=== PATIENT | female | born 1945 | race Two or more races ===

== ENCOUNTER → 2024-07-23 | Outpatient (CLI) | payer MEDICARE, MEDICAID, SELFPAY ==
--- NOTE | 2024-07-23 10:23 | XR_ITS ---
Examination: Bilateral hips, AP pelvis, 5 views Technique: AP, lateral views both hips, AP pelvis, 5 views Exam date and time: July 23, 2024 1030 hrs. Indications: Bilateral hip pain years Findings: Severe osteopenia Moderate narrowing hip joints No right or left hip fracture or dislocation Impression: Moderate narrowing hip joints
== END | disposition home or self-care (01) ==
PROVIDERS: PCP Family Medicine; Referring Provider Nurse Practitioner Family; Visit Provider Nurse Practitioner Family
DX: M25.852 Other specified joint disorders, left hip (principal); M25.851 Other specified joint disorders, right hip
CPT/HCPCS: 73523

== ENCOUNTER 2024-09-03 22:32 | Emergency (ER) | payer MEDICARE, MEDICAID, SELFPAY ==
[2024-09-03 22:35] VITALS: BP 109/59; PULSE 74; PULSE 83; RESP 16; RESP 18; O2SAT 95; O2SAT 96; BMI 28.3
[2024-09-03 23:57] VITALS: BP 111/62; PULSE 80; RESP 18; TEMP 37.2; O2SAT 95
--- NOTE | 2024-09-04 00:17 | XR_ITS ---
Examination: PA chest single view TECHNIQUE: Upright PA chest single view EXAMINATION: September 04, 2024 1225 hours INDICATIONS: Coughing beginning 2 weeks ago. FINDINGS: Mild prominence left ventricle Prominent vascular congestion Interstitial disease throughout the lungs consistent with pulmonary edema Prominent osteopenia IMPRESSION: Findings most consistent with CHF, superimposed pneumonia in both lungs not excluded, clinical correlation is advised
[2024-09-04] MEDS: ALBUTEROL/IPRATROPIUM (Duoneb) RT SOL 3 ML NEBU INH (00:43)
[2024-09-04 00:46] VITALS: PULSE 73; RESP 18; O2SAT 99
[2024-09-04 01:18] LABS: Lactate (Lactic Acid) 0.8 mMol/L (0.4-2.0)
[2024-09-04 01:19] LABS: Basophils % (Auto) 1 % (0-2.5); Eosinophils % (Auto) 0 % (0-10); Hematocrit 32.5 % (36.0-46.0); Hemoglobin 10.9 g/dL (12.0-16.0); Immature Granulocytes % (Auto) 1 % (0-0); Immature Granulocytes Auto 0.06 Thou/mm3 (0.00-0.00); Lymphocytes # (Auto) 1.9 Thou/mm3 (1.0-4.8); Lymphocytes % (Auto) 24 % (10-50); Mean Corpuscular HGB Conc 33.5 g/dl (31.0-37.0); Mean Corpuscular Hemoglobin 32.5 pg (25.0-35.0); Mean Corpuscular Volume 97 fL (80-100); Monocytes # (Auto) 0.8 Thou/mm3 (0.0-0.8); Monocytes % (Auto) 11 % (0-12); Neutrophils # (Auto) 5.1 Thou/mm3 (1.8-7.7); Neutrophils % (Auto) 64 % (37-80); Nucleated Red Blood Cell % 0 /100 WBC (0); Platelet Count 205 Thou/mm3 (140-440); RDW Standard Deviation 58.4 fL (36.4-46.3); Red Blood Count 3.35 Miln/mm3 (4.00-5.20); White Blood Count 7.9 Thou/mm3 (3.6-11.0)
--- NOTE | 2024-09-04 01:43 | PRELIM_ITS ---
Radiograph of the chest (single view). September 04, 2024 0025 hours Clinical history: Cough Comparison: No prior study is available for comparison. Findings: The aorta is ectatic with atheromatous calcification of the aortic arch. The heart size is within normal limits. Prominent interstitial lung markings are seen. There is no pleural effusion. The bony thorax is unremarkable. Impression: Findings suggestive of interstitial pulmonary edema Report Electronically Signed By: Carlos Waggoner 09/04/2024 1:43:29 AM [EST]
[2024-09-04 01:45] LABS: Alanine Aminotransferase 13 U/L (10-49); Albumin, Serum 3.8 gm/dL (3.4-4.8); Albumin/Globulin Ratio 1.3 (1.2-2.2); Alkaline Phosphatase 74 U/L (46-116); Anion Gap 8 (7-16); Aspartate Amino Transferase 23 U/L (0-34); BUN/Creatinine Ratio 19 Ratio (12-20); Blood Urea Nitrogen 13 mg/dL (9-23); Calcium 8.1 mg/dL (8.3-10.6); Calcium (Corrected) 8.3 mg/dL (8.5-10.1); Carbon Dioxide 26.2 mMol/L (20.0-31.0); Chloride 104 mMol/L (98-107); Creatinine (Component) 0.7 mg/dL (0.6-1.3); Estimated Creatinine Clearance 56.6 mL/min (>60); Glucose 97 mg/dL (74-106); Osmolality,Calculated 275 (275-295); Potassium 3.6 mMol/L (3.4-5.1); Procalcitonin 0.22 ng/ml (0.0-0.49); Sodium 138 mMol/L (136-145); Total Protein 6.8 gm/dL (5.7-8.2); eGFR > 60 See Note
--- NOTE | 2024-09-04 01:47 | EKG_ITS ---
[facility] Test Date: 2024-09-04 Pat Name: JUSTO VAZ Department: Room: - Gender: Female Digital Printer Operator: : [id number] Requested By: Virgil Morales Order Number: [id number] Reading MD: Virgil Morales Measurements Intervals [place] Rate: 80 P: 94 [place]: 126 QRS: -8 QRSD: 101 T: -1 QT: 379 QTc: 439 Interpretive Statements SINUS RHYTHM WITH SINUS ARRHYTHMIA NONSPECIFIC T-WAVE ABNORMALITY Compared to ECG 04/05/2022 13:51:13 T-wave abnormality now present /store/S0/[id number].pdf
[2024-09-04 02:16] LABS: Troponin I < 0.020 ng/mL (0.0-0.045)
[2024-09-04 02:32] LABS: D-Dimer < 250 ng/mL (<600)
[2024-09-04 02:43] LABS: B-Type Natriuretic Peptide 121 pg/mL (0-100)
--- NOTE | 2024-09-04 02:51 | XR_ITS ---
Examination: CT chest, without intravenous contrast. Sagittal and coronal 2-D reconstructions. Exam date and time: September 04, 2024 0544 hours INDICATIONS: Coughing chest pain beginning 2 days ago CTDI:vol (mGy) 14 DLP: (mGycm) 418 Technique: Multiple 3.0 mm axial sections of the chest to been obtained. Bone and lung density settings are obtained. Sagittal and coronal 2-D reconstructions have been obtained. Low dose protocols were performed. One or more of the following dose reduction techniques were used; automated exposure control, adjustment of the mA and/or KV according to patient size, use of iterative reconstruction technique. Findings: No thoracic aortic aneurysmal dilatation No significant enlargement pulmonary artery segments No paratracheal tracheobronchial or bronchopulmonary adenopathy. Mild enlargement cardiac contour. Mitral valvular calcification. Prominent vascular congestion with septal pulmonary edema in the lung maurer The liver is mildly irregular in contour Absent gallbladder No pancreatic mass Spleen is not enlarged No hydronephrosis IMPRESSION: Mild CHF, superimposed bilateral pneumonia not excluded, clinical correlation advised Suspect primary hepatocellular disease
--- NOTE | 2024-09-04 05:47 | EDRME_ITS ---
Rapid Medical Screening Exam [facility] Arrival date/time: 09/03/24 22:32 79F with history of PE, HTN, and RA (on biologic) presents to ED with several days of cough, SOB, and JAIN when coughing. Patient felt better after albuterol. CXR showed possible pulmonary edema. CT pending. Chief Complaint: Headache Time Seen by Provider: 09/04/24 00:17 Vital signs: Vital Signs Pulse Rate 83 09/03/24 22:35 Respiratory Rate 18 09/03/24 22:35 Blood Pressure 109/59 L 09/03/24 22:35 Pulse Oximetry (%) 95 09/03/24 22:35 Oxygen Delivery Method Room Air 09/03/24 22:35
--- NOTE | 2024-09-04 06:32 | PRELIM_ITS ---
CT scan of the chest without intravenous contrast (axial sections with sagittal and coronal reformats) September 04, 2024 at 0544 hours Clinical History: Possible edema on CXR. Comparison: No prior study is available for comparison. Findings: Moderate mediastinal lymphadenopathy. Moderate cardiomegaly. Coronary atherosclerosis. No pericardial effusion, pleural effusion or pneumothorax. Patchy bilateral pulmonary infiltrates. Subpleural pulmonary fibrosis and emphysema. Status post cholecystectomy. The chest wall is unremarkable. No acute osseous process. Impression: Bilateral pulmonary infiltrates suspicious for pneumonia. Report Electronically Signed By: Carlitos Branch 09/04/2024 6:32:25 AM [EST]
--- NOTE | 2024-09-04 07:56 | EDNOTE_ITS ---
<Statement entered by Ruth Townsend MD - 09/05/24 17:25> As co-signing physician, I was present and available for consult prn. I concur with the plan and care as documented by the midlevel provider. ED Headache RME/HPI General Chief Complaint: Headache Stated Complaint: HEADACHE Time Seen by Provider: 09/04/24 00:17 Arrival date/time: 09/03/24 22:32 This is an 79-year-old female that is brought in by [id number] with complaints of cough for the last few days. Patient also complains of feeling weak. Patient has a history of pulmonary embolism after having COVID per patient. Patient also has a history of high blood pressure RA. RME / HPI RME / HPI Narrative: 09/03/24 22:32 79F with history of PE, HTN, and RA (on biologic) presents to ED with several days of cough, SOB, and JAIN when coughing. Patient felt better after albuterol. CXR showed possible pulmonary edema. CT pending. Related Data Home Medications ?Medication ?Instructions ?Recorded ?Confirmed amlodipine 5 mg tablet (Norvasc) 5 mg PO QDAY #0 tabs 05/29/15 04/13/20 Previous Rx's ?Medication ?Instructions ?Recorded apixaban 5 mg (74 tabs) tablets in See Rx Instructions .Route 04/14/20 a dose pack (Eliquis DVT-PE Treat .COMPLEX #74 tabs 30D Start) azithromycin 250 mg tablet See Rx Instructions PO .COM PLEX #6 04/23/20 (Zithromax Z-Marcos) tabs prednisone 10 mg tablet 10 mg PO BID #6 tabs 2 albuterol sulfate 90 mcg/actuation 2 puff inhalation Q ID PRN 09/04/24 aerosol inhaler shortness of breath or wheez ing #8.5 grams azithromycin 250 mg tablet See Rx Instructions PO .COM PLEX #6 09/04/24 tabs Allergies Allergy/AdvReac Type Severity Reaction Status Date / Time No Known Allergies Allergy Unverified 09/04/24 08:11 Review of Systems Review of Systems Systems Reviewed: All systems reviewed, normal except as documented Past Medical History Past Medical History CARDIAC: Positive Myocardial Infarction and Hypertension GASTROINTESTINAL: Positive Gastrointestinal Disorders, Obstructive Bowel and Gastroesophageal Reflux Disease MUSCULOSKELETAL: Positive Musculoskeletal Disorders and Arthritis PSYCHO/SOCIAL: Positive Depression OTHER HISTORY: Positive Chicken Pox Family History FAMILY HISTORY: Negative Family Cardiac Disorders Surgical History SURGICAL: Positive Abdominal Surgery and Hysterectomy Social History SMOKING STATUS: Never smoker SUBSTANCE USE: does not use ED Exam General General appearance: Present alert and in no apparent distress Head Head exam: Present atraumatic Eye Eye exam: Present normal appearance, PERRL and EOMI ENT ENT exam: Present normal exam, normal oropharynx and mucous membranes moist Neck Neck exam: Present normal inspection, full ROM and trachea midline Chest Chest inspection: Present normal inspection and symmetric chest wall rise Respiratory Respiratory exam: Present normal lung sounds bilaterally Cardiovascular Cardiovascular exam: Present regular rate, normal rhythm and normal heart sounds Abdominal Exam Abdominal exam: Present soft Extremities Exam Extremities exam: Present normal inspection and full ROM Back Exam Back exam: Present normal inspection and full ROM Neurological Exam Neurological exam: Present alert, oriented X3 and CN II-XII intact Psychiatric Psychiatric exam: Present normal affect and normal mood Skin Skin exam: Present warm, dry and intact Course Quality Measures none Orders Category Date Time Status Bedside COVID-19 Antigen Test NOW Care 09/04/24 00:17 Completed Bedside Influenza A&B Antigen Test NOW Care 09/04/24 00:17 Completed EKG (ED ONLY) *Do not use* NOW Care 09/04/24 01:[address] chest wo con Stat Exams 09/04/24 02:51 Completed EKG (ED Only) Stat Exams 09/04/24 01:47 Draft XR chest 1V portable Stat Exams 09/04/24 00:17 Completed BNP [B-Type Natriuretic Peptide] Stat Lab 09/04/24 01:07 Completed CBC Stat Lab 09/04/24 01:07 Completed CMP [Comprehensive Metabolic Panel] Stat Lab 09/04/24 01:07 Completed D-Dimer Stat Lab 09/04/24 01:07 Completed Lactate (Lactic Acid) Stat Lab 09/04/24 01:07 Completed Procalcitonin Stat Lab 09/04/24 01:07 Completed Troponin I Stat Lab 09/04/24 01:07 Completed Albuterol/Ipratr Rt Janeen [Duoneb Rt Janeen] Med 09/04/24 00:17 Discontinued 3 ml INH X1 ONE cefTRIAXone [Rocephin] 1,000 mg Med 09/04/24 08:10 Discontinued Lidocaine 1% 20 ml [Xylocaine 1% 20 ML] 2.1 ml IM X1 Vital Signs Vital signs: Vital Signs Pulse Rate 83 09/03/24 22:35 Respiratory Rate 18 09/03/24 22:35 Blood Pressure 109/59 L 09/03/24 22:35 Pulse Oximetry (%) 95 09/03/24 22:35 Oxygen Delivery Method Room Air 09/03/24 22:35 Procedures -ED EKG Interpretation #1: Date of EK09/04/24 Time of EK:33 Rate: 80 Interpretation: Interpreted by me (Sinus rhythm with patient has flattening T waves in anterior lateral leads) EKG Impression: Normal sinus rhythm, No ectopy and Normal QRS Headache MDM Narrative MDM Narrative:: Patient was previously seen by Virgil ELENA and was treated prior to my arrival. chest x ray: FINDINGS: Mild prominence left ventricle Prominent vascular congestion Interstitial disease throughout the lungs consistent with pulmonary edema Prominent osteopenia IMPRESSION: Findings most consistent with CHF, superimposed pneumonia in both lungs not excluded, clinical correlation is advised Patient had a CT of her chest without contrast done prior to my shift. It showed bilateral pulmonary infiltrates suspicious for pneumonia. This was a preliminary read done by telemetry rad Today will treat empirically with antibiotics. I will send patient home with an inhaler. Patient received a breathing treatment here and feels better. Labs today show a white count of 7.9, hemoglobin of 10.9 and hematocrit of 32.5 plat elets 205 D-dimer is less than 250 sodium 138 potassium 3.6 chloride 104 bicarb 26.2 anion gap of 8 BUN and creatinine of 13 and 0.7. Lactic acid is 0.8 LFTs look okay troponin less than 0.20 BNP 121 and procalcitonin 0.22 I spoke to patient's [id number] in length I explained the importance of follow-up with primary provider. She verbalized understanding that if patient's symptoms change or worsen to have patient come back to the emergency room. Otherwise patient will follow-up with primary provider next week.. Patient data External records reviewed:: [facility] previous records Clinical information provided by:: patient Social determinants that could affect healthcare access:: none Patient has the following chronic illnesses:: see note How is presenting disease/condition affected by chronic disease/condition?: no chronic disease Evaluation data The following diagnostics were reviewed and interpreted by me:: lab results, radiology exam(s) and EKG tracing(s) Lab and/or radiology exams considered but not ordered:: none Interpretation Summary: see note Medications / Prescriptions Medications or Prescriptions considered but not ordered:: none Medication administrations:: Medication Administration History Discontinued Medications Albuterol/Ipratropium (Albuterol/Ipratropium (Duoneb) Rt Janeen 3 Ml Nebu) 3 ml I NH X1 ONE Stop: 09/04/24 00:18 Last Admin: 09/04/24 00:43 Dose: 3 ml Documented By: JANEEN Ceftriaxone Sodium 1,000 mg/ (Lidocaine HCl 2.1 ml) 0 mg IM X1 ONE Stop: 09/04/24 08:11 Last Admin: 09/04/24 08:19 Dose: 1,000 mg Documented By: MAGNO see mike Consultations Consultation(s) initiated? (list below): No Diagnosis Differential diagnosis headache: other (Pneumonia, influenza, COPD exacerbation, CHF) Most likely diagnosis given after review of the tests above:: Pneumonia Admission Indicated Admission indicated?: not indicated Admission Request Was there a request for admission?: No Disposition Plan Disposition Plan: Discharge Discharge Attestation Discharge Attestation: The patient and all family members were given an opportunity to ask questions and understood the discharge instructions. Discharge instructions specifically effects, indications for sooner follow up or return to the emergency department, and the expected course of current diagnosis. Patient condition: Stable Discharge Plan Plan Patient Disposition: HOME (Self Care) Patient condition on transfer: Stable Prescriptions/Referrals Prescriptions/Med Rec: New albuterol sulfate 90 mcg/actuation HFA aerosol inhaler 2 puff inhalation QID PRN (Reason: shortness of breath or wheezing) Qty: 8.5 0RF azithromycin 250 mg tablet See Rx Instructions .ROUTE .COMPLEX Qty: 6 0RF Rx Instructions: For 250 mg dose pack: take 500 mg today (day 1), then 250 mg for 4 days (days 2-5) No Action amlodipine [Norvasc] 5 MG tablet 5 mg PO QDAY Qty: 0 azithromycin [Zithromax Z-Marcos] 250 mg tablet See Rx Instructions .ROUTE .COMPLEX Qty: 6 0RF Rx Instructions: take 500 mg today (day 1), then 250 mg for 4 days (days 2-5) Eliquis DVT-PE Treat 30D Start 5 mg (74 tabs) tablets,dose pack See Rx Instructions .ROUTE .COMPLEX Qty: 74 0RF Rx Instructions: 10mg PO BID x 7 days then 5mg PO BID thereafter. prednisone 10 mg tablet 10 mg PO BID Qty: 6 0RF Taper: Prednisone Taper 20 mg DAILY for 2 Days and 0 Hour 10 mg DAILY for 2 Days and 0 Hour 5 mg DAILY for 7 Days and 0 Hour Referrals: Salo Akers MD [Primary Care Provider] - In 1 week Problem List Clinical Impression: RAD (reactive airway disease), Pneumonia Patient/Caregiver Discharge Instructions Discharge Activity: activity as tolerated Education Materials: ED Inhaler Use, ED Pneumonia (Adult) Additional Instructions: Follow-up with primary provider in 1 to 2 days. Come back to the emergency room if symptoms change or worsen. Print Language: Maldivian Stand Alone Forms: Alecia Award Info., Patient Portal Info Letter PA/BOOK SHELVER Supervising Physician KASSY/CORNELIUS Supervising Physician: andres
[2024-09-04 08:02] VITALS: BP 106/66; PULSE 68; RESP 19; TEMP 36.8; O2SAT 95
[2024-09-04] MEDS: cefTRIAXone 1,000 MG, LIDOCAINE 1% 20 ML 2.1 ML IM (08:19)
== END 2024-09-04 08:48 | disposition home or self-care (01) ==
PROVIDERS: Physician Assistant; Emergency Provider Emergency Medicine; PCP Family Medicine
DX: J18.9 Pneumonia, unspecified organism (principal); J45.909 Unspecified asthma, uncomplicated; Z86.711 Personal history of pulmonary embolism; I10 Essential (primary) hypertension; M06.9 Rheumatoid arthritis, unspecified
CPT/HCPCS: 36415; 71045; 71250; 80053; 83605; 83880; 84145; 84484; 85025; 85379; 87400; 87811; 93005; 94640; 96372; 99284; A9270; J0696; J3490

== ENCOUNTER → 2024-10-15 | Outpatient (CLI) | payer MEDICARE, MEDICAID, SELFPAY ==
--- NOTE | 2024-10-15 12:40 | XR_ITS ---
Examination: Bone densitometry Date and time of exam:October 15, 2024 1324 hours INDICATIONS: Menopause age 55, diagnosis rheumatoid arthritis, personal history osteopenia Technique: Lumbar spine and hip total bone mineralization values of an calculated. Peak reference and age match control results have been displayed. Findings: Lumbar spine total bone mineralization is0.856 gm/cm2. This is 1.7 standard deviations below peak reference. This is 1.0 standard deviations above age-matched controls. Hip total bone mineralization is 0.864 gm/cm2 This is 0.7 standard deviations below peak reference. This is 1.4 standard deviations above age-matched controls Impression: There is osteopenia based on lumbar spine measurements. There is normal mineralization based on hip measurements Lumbar mineralization is increased 5.4% compared with November 16, 2013 Hip mineralization is decreased 4.8% compared with November 16, 2013
== END | disposition home or self-care (01) ==
PROVIDERS: PCP Family Medicine; Referring Provider Internal Medicine Rheumatology; Visit Provider Internal Medicine Rheumatology
DX: M85.88 Other specified disorders of bone density and structure, other site (principal)
CPT/HCPCS: 77080

== ENCOUNTER → 2025-01-20 | Outpatient (CLI) | payer MEDICARE, MEDICAID, SELFPAY ==
--- NOTE | 2025-01-20 15:53 | XR_ITS ---
Examination: Lumbar spine, 5 views Technique: Lumbar spine AP, lateral, coned lateral lower lumbar spine, bilateral obliques 5 views Exam date and time: January 20, 2025, 1556 hrs. Indications: Low back pain beginning several years ago radiating down the left leg. Comparison: December 25, 2023. Findings: Severe osteopenia. Moderate to advanced diffuse facet arthropathy. Grade 1 anterolisthesis L4 on L5. No lumbar fracture. Diffuse ucmu-go-gohdqihp lumbar degenerative disc disease, most prominent L4-L5, L5-S1. Impression: Diffuse [id number] lumbar degenerative disc disease, most prominent L4-L5, L5-S1 with spinal stenosis
== END | disposition home or self-care (01) ==
PROVIDERS: PCP Family Medicine; Referring Provider Nurse Practitioner Family; Visit Provider Nurse Practitioner Family
DX: M51.360 Other intervertebral disc degeneration, lumbar region with discogenic back pain only (principal); M51.370 Other intervertebral disc degeneration, lumbosacral region with discogenic back pain only; M48.07 Spinal stenosis, lumbosacral region
CPT/HCPCS: 72110

== ENCOUNTER → 2025-01-31 | Outpatient (CLI) | payer MEDICARE, MEDICAID, SELFPAY ==
[2025-01-31 11:31] LABS: Basophils # (Auto) 0.0 Thou/mm3 (0.0-0.2); Basophils % (Auto) 1 % (0-2.5); Eosinophils # (Auto) 0.1 Thou/mm3 (0.0-0.5); Eosinophils % (Auto) 2 % (0-10); Hematocrit 36.5 % (36.0-46.0); Hemoglobin 12.3 g/dL (12.0-16.0); Immature Granulocytes Auto 0.03 Thou/mm3 (0.00-0.00); Lymphocytes # (Auto) 1.7 Thou/mm3 (1.0-4.8); Lymphocytes % (Auto) 26 % (10-50); Mean Corpuscular HGB Conc 33.7 g/dl (31.0-37.0); Mean Corpuscular Hemoglobin 31.6 pg (25.0-35.0); Mean Corpuscular Volume 94 fL (80-100); Monocytes # (Auto) 0.7 Thou/mm3 (0.0-0.8); Monocytes % (Auto) 11 % (0-12); Neutrophils # (Auto) 4.0 Thou/mm3 (1.8-7.7); Neutrophils % (Auto) 60 % (37-80); Nucleated Red Blood Cell # 0.00 Thou/mm3 (0.00-0.00); Nucleated Red Blood Cell % 0 /100 WBC (0); Platelet Count 221 Thou/mm3 (140-440); RDW Standard Deviation 48.7 fL (36.4-46.3); Red Blood Count 3.89 Miln/mm3 (4.00-5.20); White Blood Count 6.6 Thou/mm3 (3.6-11.0)
[2025-01-31 11:47] LABS: Alanine Aminotransferase 16 U/L (10-49); Albumin, Serum 3.9 gm/dL (3.4-4.8); Albumin/Globulin Ratio 1.3 (1.2-2.2); Alkaline Phosphatase 71 U/L (46-116); Anion Gap 6 (7-16); Aspartate Amino Transferase 26 U/L (0-34); BUN/Creatinine Ratio 17 Ratio (12-20); Bilirubin,Total 1.1 mg/dL (0.3-1.2); Blood Urea Nitrogen 15 mg/dL (9-23); C-Reactive Protein < 0.5 mg/dL (0.0-0.9); Calcium 9.0 mg/dL (8.3-10.6); Calcium (Corrected) 9.1 mg/dL (8.5-10.1); Carbon Dioxide 27.6 mMol/L (20.0-31.0); Chloride 105 mMol/L (98-107); Creatinine (Component) 0.9 mg/dL (0.6-1.3); Globulin 2.9 gm/dL (2.3-3.5); Glucose 94 mg/dL (74-106); Osmolality,Calculated 278 (275-295); Potassium 4.2 mMol/L (3.4-5.1); Sodium 139 mMol/L (136-145); Total Protein 6.8 gm/dL (5.7-8.2); eGFR > 60 See Note
[2025-01-31 11:56] LABS: Sed Rate (ESR) 29 mm/hr (0-30)
== END | disposition home or self-care (01) ==
LOC: COPL 10:38
PROVIDERS: PCP Family Medicine; Referring Provider Internal Medicine Rheumatology; Visit Provider Internal Medicine Rheumatology
DX: M05.79 Rheumatoid arthritis with rheumatoid factor of multiple sites without organ or systems involvement (principal)
CPT/HCPCS: 36415; 80053; 85025; 85652; 86140

== ENCOUNTER → 2025-03-18 | Outpatient (CLI) | payer MEDICARE, MEDICAID, SELFPAY ==
--- NOTE | 2025-03-18 12:00 | XR_ITS ---
Examination: MRI lumbar spine without contrast Date and time of exam: March 18, 2025, 1244 hours, comparison July 12, 2020 INDICATIONS: Left-sided lower back pain radiating down the left leg beginning 6 months ago Technique: Multiple MRI axial and sagittal sections lumbar spine. Sagittal T2-weighted images, TR 3500, TE 118 T1 weighted transverse sections, TR 688 T8.5, T2-weighted sagittal sections T1 weighted sagittal sections TR 621, TE 30 T2 axial sections, TR 4, 190, TE 84. Findings: Grade 1 anterolisthesis L4 on L5, L5 on S1 No lumbar fracture Diffuse lumbar disc desiccation. Mild to moderate disc narrowing L5-S1 Adequate marrow signal lumbar vertebral bodies L5-S1 4 mm central lumbar disc bulge extending to the foraminal regions L4-L5 severe overall spinal stenosis, axial image 5, secondary to the grade 1 anterolisthesis, 4 mm central left paracentral disc bulge, prominent facet arthropathy and thickening of ligamentum flavum circumferentially narrowing the thecal sac, greater on the left side with mild left L4 ganglionic compression L3-L4 no disc protrusion L2-3 no disc protrusion L1-L2 no disc protrusion IMPRESSION: L5-S1 4 mm central lumbar disc bulge L4-L5 severe overall spinal stenosis, including mild left L4 ganglionic impression
== END | disposition home or self-care (01) ==
PROVIDERS: PCP Family Medicine; Referring Provider Nurse Practitioner; Visit Provider Nurse Practitioner
DX: M51.370 Other intervertebral disc degeneration, lumbosacral region with discogenic back pain only (principal); M48.061 Spinal stenosis, lumbar region without neurogenic claudication
CPT/HCPCS: 72148